=== PATIENT | female | born 1995 | race American Indian/Alaskan Native ===

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

== ENCOUNTER 2017-03-12 10:36 | Emergency (ER) | payer OTHER | END 2017-03-12 11:50 | disposition left against medical advice (07) | LOC: ED 10:36 | DX: R05 Cough (principal); Z53.21 Procedure and treatment not carried out due to patient leaving prior to being seen by health care provider ==

== ENCOUNTER 2017-10-18 17:11 | Emergency (ER) | payer OTHER ==
[2017-10-18] MEDS ORDERED: NACL 0.9% 1000 ML 1,000 ML ONE (17:20)
[2017-10-18] MEDS ORDERED: NACL 0.9% 1000 ML 1,000 ML IV ONE (17:31)
[2017-10-18 17:51] LABS: Basophils % (Auto) 0.7 % (0.0-1.8); Eosinophils % (Auto) 0.3 % (0.0-4.3); Hematocrit 36.1 % (30.3-42.9); Hemoglobin 12.5 gm/dl (10.1-14.3); Lymphocytes # (Auto) 1.2 K/mm3 (1.2-5.4); Lymphocytes % (Auto) 24.4 % (13.4-35.0); Mean Corpuscular HGB Conc 35 % (30-34); Mean Corpuscular Hemoglobin 32 pg (28-32); Mean Corpuscular Volume 93 fl (79-97); Monocytes # (Auto) 0.6 K/mm3 (0.0-0.8); Monocytes % (Auto) 12.2 % (0.0-7.3); Platelet Count 280 K/mm3 (140-440); Red Blood Count 3.88 M/mm3 (3.65-5.03); Red Cell Distribution Width 13.1 % (13.2-15.2)
[2017-10-18] MEDS ORDERED: ATIVAN IV ONE (18:00)
[2017-10-18 18:04] LABS: INR 1.15 (0.87-1.13)
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
[2017-10-18 18:05] LABS: Partial Thromboplastin Time 29.2 Sec. (24.2-36.6)
[2017-10-18 18:16] LABS: BUN/Creatinine Ratio 10; Blood Urea Nitrogen 7 mg/dL (7-17); Calcium 9.4 mg/dL (8.4-10.2); Hemolysis Index 6
[2017-10-18 18:18] LABS: Creatine Kinase MB < 1.0 ng/mL (0.0-4.0)
--- NOTE | 2017-10-18 19:10 | Cat Scan Report ---
FINAL REPORT PROCEDURE: CT head without contrast. TECHNIQUE: Computerized tomography of the head was performed without contrast material. HISTORY: Syncope, possible seizure. COMPARISON: No prior studies are available for comparison. FINDINGS: The ventricles are normal in size. The mandel matter and white matter appear normal. There are no mass lesions. There is no intracranial hemorrhage. The calvarium appears intact. The mastoid air cells and paranasal sinuses are clear as far as visualized. IMPRESSION: Normal study.
[2017-10-18] MEDS ORDERED: KEPPRA 1,000 MG/NS 0.75% 100ML 1,000 MG/100 ML BAG IV ONE (20:47)
--- NOTE | 2017-10-18 20:56 | Ultrasound Report ---
FINAL REPORT PROCEDURE: Transabdominal obstetrical ultrasound. TECHNIQUE: Real-time transabdominal sonography of the uterus, placenta, amniotic fluid, adnexa, and fetus was performed with image documentation. Measurements were obtained to determine age/size. M-mode Doppler was used to document heartbeat. CPT 95424 HISTORY: Syncope, status post today. COMPARISON: No prior studies are available for comparison. FINDINGS: The uterus measures approximately 9.9 centimeters x 4.3 centimeters x 5.0 centimeters. The myometrium is unremarkable. There is an intrauterine gestational sac. A yolk sac is visible. Neither ovary is identified. IMPRESSION: Intrauterine gestational sac.
--- NOTE | 2017-10-18 21:00 | Ultrasound Report ---
FINAL REPORT PROCEDURE: Transvaginal obstetrical ultrasound. TECHNIQUE: Real-time transvaginal sonography of the uterus, placenta, amniotic fluid, adnexa, and fetus was performed with image documentation. Measurements were obtained to determine age/size. M-mode Doppler was used to document heartbeat. CPT 47626 HISTORY: Syncope, status post today. COMPARISON: No prior studies are available for comparison. FINDINGS: The myometrium appears uniform. There is an intrauterine gestational sac in the fundal portion of the uterus. A yolk sac and pole are visible. Cardiac activity is documented at 104 beats per minute. The crown rump length measurement is approximately 6.5 millimeters. Both ovaries appear normal in size and contain small follicles. There is normal color flow signal in both ovaries. IMPRESSION: Viable intrauterine .
[2017-10-18 21:37] VITALS: BP 108/54
== END 2017-10-18 21:54 | disposition home or self-care (01) ==
LOC: ED 17:11
DX: O26.891 Other specified pregnancy related conditions, first trimester (principal); R55 Syncope and collapse; O99.341 Other mental disorders complicating pregnancy, first trimester; F41.9 Anxiety disorder, unspecified; O99.011 Anemia complicating pregnancy, first trimester; Z3A.00 Weeks of gestation of pregnancy not specified
CPT/HCPCS: 36415; 70450; 76801; 76817; 80048; 82550; 82553; 84484; 84702; 85025; 85379; 85610; 85730; 86850; 86900; 86901; 93005; 93010; 96361; 96365; 96375; 99284; J1953; J2060; J7030

== ENCOUNTER 2018-07-06 12:13 | Outpatient (CLI) | payer OTHER | END 2018-07-06 17:04 | disposition home or self-care (01) | LOC: LAB 12:13 → TRG 16:29 → LAB 17:04 | PROVIDERS: ATTEND Obstetrics & Gynecology | DX: O26.893 Other specified pregnancy related conditions, third trimester (principal); Z67.11 Type A blood, Rh negative; Z3A.28 28 weeks gestation of pregnancy | CPT/HCPCS: 86850; 86900; 86901; 96372; J2790 ==

== ENCOUNTER 2018-08-18 10:10 | Outpatient (CLI) | payer OTHER ==
[2018-08-18] MEDS ORDERED: LACTATED RINGERS 1,000 ML IV ONE (10:45)
[2018-08-18 11:04] LABS: Bacteria,Urine 1+ /HPF (Negative); Bilirubin,Urine NEG (Negative); Blood,Urine SM (Negative); Color,Urine Yellow (Yellow); Mucus,Urine FEW /HPF; Protein,Urine <15 mg/dL mg/dL (Negative); Urobilinogen,Urine < 2.0 mg/dL (<2.0)
== END 2018-08-18 12:11 | disposition home or self-care (01) ==
LOC: TRG 10:10
PROVIDERS: ATTEND Obstetrics & Gynecology
DX: O47.03 False labor before 37 completed weeks of gestation, third trimester (principal); Z3A.34 34 weeks gestation of pregnancy
CPT/HCPCS: 59025; 81001

== ENCOUNTER 2018-08-22 02:23 | Outpatient (CLI) | payer OTHER ==
[2018-08-22] MEDS ORDERED: LACTATED RINGERS 1,000 ML ONE (02:48)
[2018-08-22] MEDS ORDERED: LACTATED RINGERS 1,000 ML IV ONE (02:56)
[2018-08-22] MEDS ORDERED: BRETHINE SUB-Q SCH (03:00)
[2018-08-22 03:46] LABS: Bilirubin,Urine NEG (Negative); Blood,Urine NEG (Negative); Color,Urine Straw (Yellow); Mucus,Urine FEW /HPF; Protein,Urine <15 mg/dL mg/dL (Negative); Urobilinogen,Urine < 2.0 mg/dL (<2.0)
[2018-08-22 03:51] LABS: Amphetamine Screen,Urine PRESUMPTIVE NEGATIVE; Benzodiazepines Screen,Urine PRESUMPTIVE NEGATIVE; Cannabinoid Screen,Urine PRESUMPTIVE NEGATIVE; Cocaine Screen,Urine PRESUMPTIVE NEGATIVE; Methadone Screen,Urine PRESUMPTIVE NEGATIVE; Opiate Screen,Urine PRESUMPTIVE NEGATIVE
[2018-08-22 04:15] VITALS: BP 102/55
== END 2018-08-22 04:35 | disposition home or self-care (01) ==
LOC: TRG 02:23
PROVIDERS: ATTEND Obstetrics & Gynecology
DX: O62.9 Abnormality of forces of labor, unspecified (principal); O26.893 Other specified pregnancy related conditions, third trimester; R10.9 Unspecified abdominal pain; Z3A.34 34 weeks gestation of pregnancy
CPT/HCPCS: 59025; 80307; 81001; 96360; 96372; J3105; J7120